=== PATIENT | female | born 1955 | race Caucasian/White ===

== ENCOUNTER 2023-08-18 09:33 | Day surgery (SDC) | payer MEDICARE, OTHER ==
[~2023-08-18 09:33] MED LIST: Sodium Chloride 0.9% 10 ML Syringe FLUSH PRN; Sodium Chloride 0.9% 10 ML Syringe FLUSH SCH
[2023-08-18] MEDS: Lactated Ringers 1,000 ML IV SCH (10:00)
[2023-08-18] MEDS ORDERED: Lidocaine 2% 5 ML SDV ONE (10:48)
[2023-08-18] MEDS ORDERED: Propofol 200 MG/20 ML SDV ONE (11:56)
[2023-08-18] MEDS ORDERED: fentaNYL 100 MCG/2 ML SDV IVPUSH PRN (12:43)
[2023-08-18] MEDS ORDERED: Ondansetron 4 MG/2 ML SDV IVPUSH PRN (12:43)
== END 2023-08-18 13:40 | disposition home or self-care (01) ==
LOC: JD.SDS 09:33
PROVIDERS: ATTEND Surgery
DX: Z12.11 Encounter for screening for malignant neoplasm of colon (principal); K31.89 Other diseases of stomach and duodenum; R13.10 Dysphagia, unspecified; D12.5 Benign neoplasm of sigmoid colon; I10 Essential (primary) hypertension; Z91.018 Allergy to other foods; Z88.2 Allergy status to sulfonamides; Z79.899 Other long term (current) drug therapy; Z86.010 Personal history of colon polyps
CPT/HCPCS: 00813; 88305; J2704; J3490; J7120